=== PATIENT | male | born 1940 | race Caucasian/White ===

== ENCOUNTER 2021-07-23 11:48 | Emergency (ER) | payer OTHER, BC ==
[~2021-07-23] VITALS: Ht 165.1 cm; Wt 79.4 kg
[2021-07-23] MEDS ORDERED: AVAPRO75 MG PO (13:09)
[2021-07-23] MEDS ORDERED: ZOCOR40 MG PO (13:09)
== END 2021-07-23 15:02 | disposition home or self-care (01) ==
LOC: ER 11:48
DX: M25.511 Pain in right shoulder (principal)